=== PATIENT | female | born 2000 | race Caucasian/White ===

== ENCOUNTER 2018-10-23 22:03 | Emergency (ER) | payer SELFPAY ==
--- NOTE | 2018-10-23 22:27 | NUR ---
PATIENT STATED DID NOT WANT TO WAIT AND LEFT.
== END 2018-10-23 22:28 | disposition left against medical advice (07) ==
LOC: ER 22:10
DX: Z53.21 Procedure and treatment not carried out due to patient leaving prior to being seen by health care provider (principal)

== ENCOUNTER 2018-10-25 20:48 | Emergency (ER) | payer SELFPAY ==
[~2018-10-25] VITALS: Ht 160 cm; Wt 63.5 kg
[2018-10-25 21:00] VITALS: BP 121/75
--- NOTE | 2018-10-25 21:00 | NUR ---
PT BIBSELF C/O SOB SINCE YESTERDAY DUE TO LOSING INHALER. HX ASTHMA. SMOKED METH X 1 HOUR AGO. PT AOX4. NAD NOTED. RESP EVEN AND UNLABORED. FRIEND AT BEDSIDE. PT ON BED 10. WILL CONTINUE TO MONITOR.
[2018-10-25] MEDS ORDERED: predniSONE 20 MG TABLET ONE (21:22)
[2018-10-25] MEDS ORDERED: ALBUTEROL FS 2.5 MG/3 ML VIAL.NEB ONE ×2 (21:29→21:36)
[2018-10-25] MEDS ORDERED: IPRATROPIUM NEB FS 0.5 MG/2.5 ML AMPUL.NEB ONE (21:29)
[2018-10-25] MEDS ORDERED: ALBUTEROL FS 2.5 MG/3 ML VIAL.NEB CONTNEB ONE ×2 (21:30→22:00)
[2018-10-25] MEDS ORDERED: IPRATROPIUM NEB FS 0.5 MG/2.5 ML AMPUL.NEB NEB ONE (21:30)
[2018-10-25] MEDS ORDERED: predniSONE 20 MG TABLET PO ONE (21:30)
--- NOTE | 2018-10-25 21:35 | NUR ---
RT AT BEDSIDE
[2018-10-25] MEDS ORDERED: DEXAMETHASONE SOLN 5 MG/5 ML UDC PO ONE (22:00)
[2018-10-25] MEDS ORDERED: DEXAMETHASONE 1 MG TABLET ONE (22:11)
[2018-10-25] MEDS ORDERED: DEXAMETHASONE 4 MG TABLET ONE (22:11)
--- NOTE | 2018-10-25 22:14 | NUR ---
RADIOLOGY AT BEDSIDE FOR XRAY
--- NOTE | 2018-10-25 22:36 | NUR ---
Patient eloped from facility. ER MD notified. NO IV ACCESS. PT RECEVIED ALL MEDICATIONS AND BREATHING TREATMENT.
== END 2018-10-25 22:38 | disposition left against medical advice (07) ==
LOC: ER 20:51
DX: J45.21 Mild intermittent asthma with (acute) exacerbation (principal); F19.10 Other psychoactive substance abuse, uncomplicated; F17.200 Nicotine dependence, unspecified, uncomplicated
CPT/HCPCS: 71045; 94644; 99285; J7512; J8540 ×2

== ENCOUNTER 2019-05-14 14:26 | Emergency (ER) | payer MEDICAID ==
[~2019-05-14] VITALS: Ht 162.6 cm; Wt 54.9 kg
[2019-05-14 14:35] VITALS: BP 133/80
== END 2019-05-14 15:04 | disposition home or self-care (01) ==
LOC: ER 14:30
DX: Z76.0 Encounter for issue of repeat prescription (principal); J45.909 Unspecified asthma, uncomplicated; F17.200 Nicotine dependence, unspecified, uncomplicated